=== PATIENT | female | born 1960 | race Caucasian/White ===

== ENCOUNTER 2016-08-08 18:40 | Inpatient (IN) | payer OTHER ==
[~2016-08-08] VITALS: Ht 160 cm; Wt 99.8 kg
[2016-08-08 19:49] LABS: HEMOGLOBIN 14.7 gm/dl (12.3-15.3); RED BLOOD COUNT 4.4 M/UL (4.00-5.10); WHITE BLOOD COUNT 12.5 K/UL (4.5-11.0)
[2016-08-08 20:08] LABS: BUN/CREATININE RATIO 36 (0-10)
[2016-08-09] MEDS ORDERED: ALLER-FEX180 MG PO (10:12)
[2016-08-09] MEDS ORDERED: DULERA 200 MCG8.8 GM INH (10:12)
[2016-08-09] MEDS ORDERED: LIPITOR TAB 1010 MG PO (10:12)
[2016-08-09] MEDS ORDERED: SINGULAIR10 MG PO (10:13)
[2016-08-09] MEDS ORDERED: LORTAB 5-325 M1 EACH PO (10:13)
[2016-08-09] MEDS ORDERED: NEURONTIN 300300 MG PO (10:14)
[2016-08-09] MEDS ORDERED: PAROXETINE HCL10 MG PO (10:14)
[2016-08-10 03:44] LABS: HEMOGLOBIN 14.3 gm/dl (12.3-15.3); RED BLOOD COUNT 4.32 M/UL (4.00-5.10); WHITE BLOOD COUNT 12.7 K/UL (4.5-11.0)
[2016-08-10 03:56] LABS: BUN/CREATININE RATIO 40 (0-10)
[2016-08-11 04:10] LABS: BUN/CREATININE RATIO 34 (0-10)
[2016-08-12] MEDS ORDERED: MEDROL DOSEPAK 24 MG PO (13:05)
[2016-08-12] MEDS ORDERED: LEVAQUIN500 MG PO (13:07)
[2016-08-12] MEDS ORDERED: INCRUSE ELLI62.5 MCG INH (13:09)
[2016-08-12] MEDS ORDERED: COMBIVENT0.074 GM/I INH (13:10)
== END 2016-08-12 13:44 | disposition home or self-care (01) | DRG 189 ==
LOC: ER1 18:40 → ZEROF 22:17 → CCU 08-09 16:15 → MED SURG 4 08-11 10:59
PROVIDERS: Emergency Medicine; Family Medicine; ADMIT Internal Medicine
PROC: 5A09357 Assistance with Respiratory Ventilation, Less than 24 Consecutive Hours, Continuous Positive Airway Pressure (ICD-10-PCS; principal; 2016-08-09)
DX: J96.02 Acute respiratory failure with hypercapnia (principal); J44.0 Chronic obstructive pulmonary disease with (acute) lower respiratory infection; J44.1 Chronic obstructive pulmonary disease with (acute) exacerbation; N39.0 Urinary tract infection, site not specified; J96.01 Acute respiratory failure with hypoxia; J20.9 Acute bronchitis, unspecified; B96.20 Unspecified Escherichia coli [E. coli] as the cause of diseases classified elsewhere; E87.6 Hypokalemia; M06.9 Rheumatoid arthritis, unspecified; I10 Essential (primary) hypertension; E78.5 Hyperlipidemia, unspecified; M51.36 Other intervertebral disc degeneration, lumbar region; G47.33 Obstructive sleep apnea (adult) (pediatric); J30.9 Allergic rhinitis, unspecified; E66.9 Obesity, unspecified; Z68.38 Body mass index [BMI] 38.0-38.9, adult; M10.9 Gout, unspecified; G89.29 Other chronic pain; F41.9 Anxiety disorder, unspecified; G47.00 Insomnia, unspecified; F32.9 Major depressive disorder, single episode, unspecified; F17.200 Nicotine dependence, unspecified, uncomplicated; Z79.51 Long term (current) use of inhaled steroids; Z79.891 Long term (current) use of opiate analgesic; Z99.81 Dependence on supplemental oxygen; Z79.899 Other long term (current) drug therapy; Z88.0 Allergy status to penicillin; Z91.012 Allergy to eggs; Z87.442 Personal history of urinary calculi; Z90.49 Acquired absence of other specified parts of digestive tract; Z98.890 Other specified postprocedural states; Z80.3 Family history of malignant neoplasm of breast; Z82.5 Family history of asthma and other chronic lower respiratory diseases; Z82.49 Family history of ischemic heart disease and other diseases of the circulatory system; Z82.61 Family history of arthritis; Z81.8 Family history of other mental and behavioral disorders
CPT/HCPCS: ECHO; 36415; 36600; 70450; 71010; 71250; 80048; 80053; 80307; 81001; 82550; 82553; 82803; 82962; 83605; 83735; 83874; 83880; 84439; 84443; 84484; 85025; 85027; 87040; 87077; 87086; 87186; 93005; 93306; 94640; 94660; 94664; 96374; 96375; 99285; J0696; J1650; J1956; J2920; J2930; J7050

== ENCOUNTER → 2016-08-17 | Outpatient (CLI) | payer OTHER ==
[~2016-08-17] MED LIST: ALLER-FEX180 MG PO; COMBIVENT0.074 GM/I INH; DULERA 200 MCG8.8 GM INH; INCRUSE ELLI62.5 MCG INH; LEVAQUIN500 MG PO; LIPITOR TAB 1010 MG PO; LORTAB 5-325 M1 EACH PO; MEDROL DOSEPAK 24 MG PO; NEURONTIN 300300 MG PO; PAROXETINE HCL10 MG PO; SINGULAIR10 MG PO
== END ==
LOC: KOH-I 10:19
DX: M54.5 Low back pain (principal); M51.36 Other intervertebral disc degeneration, lumbar region; M99.73 Connective tissue and disc stenosis of intervertebral foramina of lumbar region; M99.74 Connective tissue and disc stenosis of intervertebral foramina of sacral region
CPT/HCPCS: 72148

== ENCOUNTER → 2016-10-13 | Outpatient (CLI) | payer OTHER | LOC: SLEEP 21:30 | DX: G47.33 Obstructive sleep apnea (adult) (pediatric) (principal) | CPT/HCPCS: 95810 ==

== ENCOUNTER 2021-06-22 21:21 | Emergency (ER) | payer MEDICARE ==
[~2021-06-22 21:21] MED LIST changes: -NEURONTIN 300300 MG PO; -SINGULAIR10 MG PO
[2021-06-25] MEDS ORDERED: PHENERGAN 25 MG25 M1 PO (10:02)
[2021-06-25] MEDS ORDERED: CELEXA40 MG PO (10:03)
[2021-06-25] MEDS ORDERED: SINGULAIR10 MG PO (10:13)
[2021-06-25] MEDS ORDERED: NEURONTIN800 MG PO (10:14)
== END 2021-06-23 01:40 | disposition home or self-care (01) ==
LOC: ER1 21:21
DX: S83.92XA Sprain of unspecified site of left knee, initial encounter (principal); S93.402A Sprain of unspecified ligament of left ankle, initial encounter; S73.102A Unspecified sprain of left hip, initial encounter; J44.9 Chronic obstructive pulmonary disease, unspecified; F17.210 Nicotine dependence, cigarettes, uncomplicated; Z88.7 Allergy status to serum and vaccine; W01.0XXA Fall on same level from slipping, tripping and stumbling without subsequent striking against object, initial encounter
CPT/HCPCS: 73502; 73562; 73610; 99283

== ENCOUNTER 2021-06-25 11:02 | Observation (INO) | payer MEDICARE ==
[~2021-06-25] VITALS: Ht 162.6 cm; Wt 103.6 kg
[~2021-06-25 11:02] MED LIST changes: +CELEXA40 MG PO; +NEURONTIN800 MG PO; +PHENERGAN 25 MG25 M1 PO; +SINGULAIR10 MG PO
[2021-06-25 12:07] LABS: HEMOGLOBIN 15.8 gm/dl (12.3-15.3); RED BLOOD COUNT 4.95 M/UL (4.00-5.10); WHITE BLOOD COUNT 8.9 K/UL (4.5-11.0)
[2021-06-25 12:35] LABS: BUN/CREATININE RATIO 27 (0-10)
[2021-06-25] MEDS ORDERED: PROAIR HFA8.5 GM INH (16:37)
[2021-06-25] MEDS ORDERED: ALBUTEROL1.25 MG/3 NEB (16:37)
[2021-06-25] MEDS ORDERED: SYMBICORT 160-1 INHA INH (16:39)
[2021-06-25] MEDS ORDERED: CELEBREX200 MG PO (16:40)
[2021-06-25] MEDS ORDERED: FLONASE ALLER15.8 ML (16:41)
[2021-06-25] MEDS ORDERED: HYDROCHLOROTHIA25 MG PO (16:42)
[2021-06-25] MEDS ORDERED: ZESTRIL40 MG PO (16:43)
[2021-06-25] MEDS ORDERED: LOVASTATIN10 MG PO (16:43)
[2021-06-25] MEDS ORDERED: OMEPRAZOLE20 MG PO (16:44)
[2021-06-25] MEDS ORDERED: PERCOCET 10-321 EACH PO (16:45)
[2021-06-25] MEDS ORDERED: DRISDOL1250 MCG PO (16:46)
[2021-06-25] MEDS ORDERED: IBUPROFEN200 MG PO (16:46)
[2021-06-25] MEDS ORDERED: MELATONIN10 M2 PO (16:47)
[2021-06-25] MEDS ORDERED: PEPCID20 MG PO (16:48)
[2021-06-26 03:01] LABS: HEMOGLOBIN 16.6 gm/dl (12.3-15.3); RED BLOOD COUNT 5.15 M/UL (4.00-5.10); WHITE BLOOD COUNT 9.6 K/UL (4.5-11.0)
[2021-06-26 03:12] LABS: BUN/CREATININE RATIO 36 (0-10)
[2021-06-27] MEDS ORDERED: ASPIRIN EC81 MG PO (15:13)
[2021-06-27] MEDS ORDERED: LOPRESSOR 25 MG25 MG PO (15:13)
[2021-06-27] MEDS ORDERED: LISINOPRIL10 MG PO (15:17)
[2021-06-28] MEDS ORDERED: FLECAINIDE ACE100 MG PO (11:09)
[2021-06-28] MEDS ORDERED: DILTIAZEM 24HR180 M1 PO (11:09)
[2021-06-28] MEDS ORDERED: ELIQUIS 5 MG TAB5 MG PO (11:09)
== END 2021-06-28 13:37 | disposition home or self-care (01) ==
LOC: ER1 11:02 → CDU 15:52 → M/S 16:49 → PROG CARE 19:07
PROVIDERS: Physician Assistant Medical; ADMIT Internal Medicine
DX: G92.8 Other toxic encephalopathy (principal); T40.2X5A Adverse effect of other opioids, initial encounter; T42.6X5A Adverse effect of other antiepileptic and sedative-hypnotic drugs, initial encounter; J96.22 Acute and chronic respiratory failure with hypercapnia; I11.9 Hypertensive heart disease without heart failure; E78.5 Hyperlipidemia, unspecified; J44.9 Chronic obstructive pulmonary disease, unspecified; F17.210 Nicotine dependence, cigarettes, uncomplicated; I08.1 Rheumatic disorders of both mitral and tricuspid valves; R77.8 Other specified abnormalities of plasma proteins; G89.4 Chronic pain syndrome; I48.0 Paroxysmal atrial fibrillation; R19.7 Diarrhea, unspecified; Z90.49 Acquired absence of other specified parts of digestive tract; Z98.51 Tubal ligation status; Z88.1 Allergy status to other antibiotic agents; Z91.012 Allergy to eggs; Z91.018 Allergy to other foods; Z20.822 Contact with and (suspected) exposure to COVID-19; Z79.82 Long term (current) use of aspirin; Z79.01 Long term (current) use of anticoagulants
CPT/HCPCS: ECHO; 36415; 36600; 51702; 70450; 71045; 80048; 80053; 80307; 81001; 82140; 82550; 82553; 82803; 83605; 83735; 84132; 84484; 85025; 85027; 87040; 93005; 93270; 93306; 94640; 94664; 94760; 96372; 96374; 99285; G0378; J1650; J2310; U0002

== ENCOUNTER → 2021-10-02 | Emergency (ER) | payer MEDICARE ==
[~2021-10-02] MED LIST changes: +ALBUTEROL1.25 MG/3 NEB; +ASPIRIN EC81 MG PO; +BUDESONIDE-FO10.2 G1 INH; +CELEBREX200 MG PO; +DILTIAZEM 24HR180 M1 PO; +DRISDOL1250 MCG PO; +ELIQUIS 5 MG TAB5 MG PO; +FLECAINIDE ACE100 MG PO; +FLONASE ALLER15.8 ML; +FOLIC ACID1 MG PO; +HYDROCHLOROTHIA25 MG PO; +IBUPROFEN200 MG PO; +LISINOPRIL10 MG PO; +LISINOPRIL40 MG PO; +LOPRESSOR 25 MG25 MG PO; +LOVASTATIN10 MG PO; +MEDROL4 MG PO; +MELATONIN10 M2 PO; +OMEPRAZOLE20 MG PO; +PEPCID20 MG PO; +PERCOCET 10-321 EACH PO; +PROAIR HFA8.5 GM INH; +SPIRIVA RESPIMAT4 GM INH; +SYMBICORT 160-1 INHA INH; +ZESTRIL40 MG PO
== END | disposition left against medical advice (07) ==
LOC: ER1 17:51
DX: Z53.21 Procedure and treatment not carried out due to patient leaving prior to being seen by health care provider (principal)